=== PATIENT | male | born 1995 | race Caucasian/White ===

== ENCOUNTER 2017-01-27 12:53 | Emergency (ER) | payer BC ==
[2017-01-27 13:26] VITALS: BP 115/87
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
--- NOTE | 2017-01-27 13:50 | RAD ---
Indication: Right hand injury. 4 views of the right hand demonstrates fracture through the proximal end of the fourth metacarpal. Slight dorsal displacement is noted. IMPRESSION: Fracture of the proximal end of the proximal fourth metacarpal.
== END 2017-01-27 14:47 | disposition home or self-care (01) ==
LOC: UCCORT 12:53
DX: S62.304A Unspecified fracture of fourth metacarpal bone, right hand, initial encounter for closed fracture (principal); W22.03XA Walked into furniture, initial encounter; Y93.9 Activity, unspecified; Y92.9 Unspecified place or not applicable
CPT/HCPCS: 26600; 99202; G0463

== ENCOUNTER 2018-01-10 17:16 | Emergency (ER) | payer BC ==
[2018-01-10 18:01] VITALS: BP 118/62
[2018-01-10] MEDS ORDERED: Tetan/Diph/Pertus SYR(Tdap)* 0.5 ML SYR(BOOSTRIX) use SYR IM ONE (18:09)
--- NOTE | 2018-01-10 18:51 | UC ---
Skin Complaint HPI - HPI Summary HPI Summary: per web analytics specialist "stepped on a joey nail yesterday evening". there is no discharge. no fevers, no redness. his mom really wanted him to come in. he is not concerned. not UTD w/ Tdap. - History of Current Complaint Chief Complaint: UCGeneralIllness Time Seen by Provider: 01/10/18 18:26 Stated Complaint: PUNCTURE WOUND-TETANUS Pain Intensity: 0 - Allergy/Home Medications Allergies/Adverse Reactions: Allergies Allergy/AdvReac Type Severity Reaction Status Date / Time No Known Allergies Allergy Verified 01/10/18 18:02 Review of Systems Constitutional: Negative Skin: Negative Eyes: Negative ENT: Negative Respiratory: Negative Cardiovascular: Negative Gastrointestinal: Negative Genitourinary: Negative Motor: Negative Neurovascular: Negative Musculoskeletal: Negative Neurological: Negative Psychological: Negative Is Patient Immunocompromised?: No All Other Systems Reviewed And Are Negative: Yes PMH/Surg Hx/FS Hx/Imm Hx Previously Healthy: Yes - Surgical History Surgical History: Yes Surgery Procedure, Year, and Place: fx right hand - Social History Alcohol Use: Occasionally Substance Use Type: None Smoking Status (MU): Never Smoked Tobacco - Immunization History Most Recent Tetanus Shot: unknown Physical Exam Triage Information Reviewed: Yes Appearance: Well-Appearing, No Pain Distress, Well-Nourished Vital Signs: Initial Vital Signs Temp 97.9 F 01/10/18 17:58 Pulse 73 01/10/18 17:58 Resp 16 01/10/18 17:58 BP 118/62 01/10/18 17:58 Pulse Ox 100 01/10/18 17:58 Respiratory Exam: Normal Respiratory: Positive: Lungs clear Cardiovascular Exam: Normal Cardiovascular: Positive: RRR, No Murmur Musculoskeletal Exam: Normal Neurological Exam: Normal Psychological Exam: Normal Skin: Positive: Other - plantar foot with nearly healed puncture wound. no erythema or discharge. NT. Course/Dx - Course Course Of Treatment: TDAP today. no evidnece for infection. healing well. - Differential Diagnoses - Skin Complaint Differential Diagnoses: Cellulitis, Other - Diagnoses Provider Diagnoses: puncture wound. Discharge - Sign-Out/Discharge Documenting (check all that apply): Patient Departure - Discharge Plan Condition: Stable Disposition: HOME Patient Education Materials: Puncture Wound (ED) Referrals: No Primary Care Phys,NOPCP [Primary Care Provider] - Additional Instructions: You were given TDAP vaccine today and have been provided with information regarding the vaccine. There is no evidence of any infection. Follow up if there are any further concerns. - Billing Disposition and Condition Condition: STABLE Disposition: Home
== END 2018-01-10 18:58 | disposition home or self-care (01) ==
LOC: UCCORT 17:16
DX: S91.339A Puncture wound without foreign body, unspecified foot, initial encounter (principal); W22.8XXA Striking against or struck by other objects, initial encounter; Y93.9 Activity, unspecified; Y92.9 Unspecified place or not applicable; Z23 Encounter for immunization
CPT/HCPCS: 90471; 90715; 99211; G0463

== ENCOUNTER 2018-06-13 20:54 | Emergency (ER) | payer BC ==
[2018-06-13 21:19] VITALS: BP 139/75
--- NOTE | 2018-06-13 22:12 | UC ---
Hand/Wrist HPI - HPI Summary HPI Summary: Pt c/o right wrist pain and swelling after having power tool twist and torque his right wrist. Pt c/o pain distal right wrist pain and swelling. - History Of Current Complaint Chief Complaint: UCUpperExtremity Stated Complaint: RIGHT WRIST SWELLING Time Seen by Provider: 06/13/18 21:35 Hx Obtained From: Patient ?: No Onset/Duration: Sudden Onset Severity Initially: Moderate Severity Currently: Mild Pain Intensity: 2 Pain Scale Used: 0-10 Numeric Character Of Pain: Dull, Aching, Stiffness Aggravating Factor(s): Movement Alleviating Factor(s): Rest Associated Signs And Symptoms: Positive: Swelling Related History: Dominant Hand Right - Risk Factors Compartment Syndrome Risk Factors: Pain - Allergies/Home Medications Allergies/Adverse Reactions: Allergies Allergy/AdvReac Type Severity Reaction Status Date / Time No Known Allergies Allergy Verified 06/13/18 21:19 PMH/Surg Hx/FS Hx/Imm Hx Previously Healthy: Yes - Surgical History Surgical History: Yes Surgery Procedure, Year, and Place: fx right hand - Family History Known Family History: Positive: Cardiac Disease - Social History Occupation: Employed Full-time Lives: With Family Alcohol Use: Occasionally Substance Use Type: None Smoking Status (MU): Never Smoked Tobacco Have You Smoked in the Last Year: No - Immunization History Most Recent Tetanus Shot: unknown Review of Systems All Other Systems Reviewed And Are Negative: Yes Constitutional: Positive: Negative Skin: Positive: Negative Eyes: Positive: Negative ENT: Positive: Negative Respiratory: Positive: Negative Cardiovascular: Positive: Negative Gastrointestinal: Positive: Negative Genitourinary: Positive: Negative Motor: Positive: Decreased ROM - right wrist, Weakness - right wrist Neurovascular: Positive: Negative Musculoskeletal: Positive: Arthralgia, Decreased ROM, Edema, Myalgia Neurological: Positive: Negative Psychological: Positive: Negative Is Patient Immunocompromised?: No Physical Exam Triage Information Reviewed: Yes Appearance: Well-Appearing Vital Signs: Initial Vital Signs Temp 98.7 F 06/13/18 21:17 Pulse 100 06/13/18 21:17 Resp 17 06/13/18 21:17 BP 139/75 06/13/18 21:17 Pulse Ox 100 06/13/18 21:17 Vital Signs Reviewed: Yes Eye Exam: Normal ENT Exam: Normal Dental Exam: Normal Neck exam: Normal Respiratory Exam: Normal Cardiovascular Exam: Normal Musculoskeletal: Positive: Strength Limited @, ROM Limited @, Edema @ - right distal medial wrist Neurological Exam: Normal Psychological Exam: Normal Skin Exam: Normal Diagnostics - Radiology No standard instances Radiology Interpretation Completed By: ED Physician - fracture stylus right ulna Hand/Wrist Course/Dx - Differential Dx/Diagnosis Differential Diagnosis/HQI/PQRI: Contusion, Fracture, Sprain, Strain Provider Diagnosis: Wrist fracture, right Discharge - Sign-Out/Discharge Documenting (check all that apply): Patient Departure All imaging exams completed and their final reports reviewed: No - Discharge Plan Condition: Stable Disposition: HOME Patient Education Materials: Wrist Fracture in Adults (ED), R.I.C.E. Treatment (ED) Referrals: Guevara Razo MD [Medical Doctor] - As Soon As Possible No Primary Care Phys,NOPCP [Primary Care Provider] - - Billing Disposition and Condition Condition: STABLE Disposition: Home
--- NOTE | 2018-06-14 09:31 | ED ---
Progress - Progress Note Progress Note: final read reviewed. No change to plan. Course/Dx - Diagnoses Provider Diagnoses: Wrist fracture, right Discharge - Sign-Out/Discharge Documenting (check all that apply): Patient Departure All imaging exams completed and their final reports reviewed: Yes - Discharge Plan Condition: Stable Disposition: HOME Patient Education Materials: Wrist Fracture in Adults (ED), R.I.C.E. Treatment (ED) Referrals: Guevara Razo MD [Medical Doctor] - As Soon As Possible No Primary Care Phys,NOPCP [Primary Care Provider] - - Billing Disposition and Condition Condition: STABLE Disposition: Home
== END 2018-06-13 21:51 | disposition home or self-care (01) ==
LOC: UCCORT 20:54
DX: S52.511A Displaced fracture of right radial styloid process, initial encounter for closed fracture (principal); X50.0XXA Overexertion from strenuous movement or load, initial encounter; Y93.89 Activity, other specified; Y92.9 Unspecified place or not applicable
CPT/HCPCS: 99212; G0463

== ENCOUNTER 2019-04-11 17:40 | Emergency (ER) | payer BC ==
[2019-04-11 18:07] VITALS: BP 121/76
[2019-04-11] MEDS ORDERED: Lidocaine 2% w EPI 1:100,000* 20 ML MDV VIAL INJ ONE (18:18)
[2019-04-11] MEDS ORDERED: Lidocaine 1% w EPI 1:100,000* MDV 20 ML VIAL INJ ONE (18:36)
[2019-04-11] MEDS ORDERED: Lidocaine 1% w EPI 1:200,000* SDV 30 ML VIAL INJ ONE (18:44)
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
[2019-04-11] MEDS ORDERED: Cephalexin CAP* 500 MG PO ONE (19:42)
== END 2019-04-11 20:04 | disposition home or self-care (01) ==
LOC: UCCORT 17:40
DX: S81.811A Laceration without foreign body, right lower leg, initial encounter (principal); V86.99XA Unspecified occupant of other special all-terrain or other off-road motor vehicle injured in nontraffic accident, initial encounter; Y93.89 Activity, other specified; Y92.9 Unspecified place or not applicable
CPT/HCPCS: 12032; 99212; A9270-GY; G0463; J2001